=== PATIENT | male | born 1965 | race Native Hawaiian/Other Pacific Islander ===

== ENCOUNTER 2020-05-16 15:30 | Outpatient (CLI) | payer OTHER ==
[2020-05-18 10:15] LABS: PLATELET COUNT 269 K/uL (142-355)
== END 2020-05-16 19:02 | disposition home or self-care (01) ==
LOC: LAB 15:30
PROVIDERS: ATTEND Nurse Practitioner Family
DX: Z00.00 Encounter for general adult medical examination without abnormal findings (principal); E10.9 Type 1 diabetes mellitus without complications; E78.49 Other hyperlipidemia; E53.8 Deficiency of other specified B group vitamins; E55.9 Vitamin D deficiency, unspecified; Z79.899 Other long term (current) drug therapy
CPT/HCPCS: 36415; 80053; 80061; 82306; 82607; 83036; 84153; 84403; 84439; 84443; 85027; 87635; G2023; U0003

== ENCOUNTER 2020-11-03 15:37 | Outpatient (CLI) | payer OTHER ==
[2020-11-03 15:46] LABS: PLATELET COUNT 270 K/uL (142-355)
[2020-11-03 16:18] LABS: POTASSIUM 4.2 mmol/L (3.6-5.2)
== END 2020-11-03 21:04 | disposition home or self-care (01) ==
LOC: LAB 15:37
PROVIDERS: ATTEND Nurse Practitioner Family
DX: Z00.00 Encounter for general adult medical examination without abnormal findings (principal); B02.9 Zoster without complications; B02.23 Postherpetic polyneuropathy; E11.9 Type 2 diabetes mellitus without complications; Z79.899 Other long term (current) drug therapy; R53.83 Other fatigue; R53.81 Other malaise; E53.8 Deficiency of other specified B group vitamins; E55.9 Vitamin D deficiency, unspecified
CPT/HCPCS: 80053; 80061; 82306; 82607; 83036; 84439; 84443; 85027